=== PATIENT | male | born 2000 | race African-American/Black ===

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

== ENCOUNTER 2022-03-27 13:51 | Emergency (ER) | payer SELFPAY ==
[2022-03-27] MEDS ORDERED: Lidocaine 1% PF 5 ML VIAL ONE ×2 (14:10→15:00)
[2022-03-27] MEDS ORDERED: Ketorolac Tromethamine 30 MG/ML VIAL ONE (14:10)
== END 2022-03-27 15:41 | disposition home or self-care (01) ==
LOC: ERS 13:51
DX: L73.2 Hidradenitis suppurativa (principal)
CPT/HCPCS: 10060; 96372; J1885